=== PATIENT | female | born 1975 | race Caucasian/White ===

== ENCOUNTER 2017-03-12 02:03 | Inpatient (IN) | payer MEDICAID, OTHER ==
[~2017-03-12] VITALS: Ht 162.6 cm; Wt 73.0 kg
[2017-03-12] VITALS (8 sets, daily range): BP systolic 109–128; BP diastolic 61–69
[2017-03-12] MEDS ORDERED: ACETAMINOPHEN 325MG TABLET PO STA (02:54)
[2017-03-12] MEDS ORDERED: SODIUM CHLORIDE 0.9% 1,000 ML IV ONE ×2 (02:54)
[2017-03-12] MEDS ORDERED: KETOROLAC 30MG/ML VIAL IV STA (02:54)
[2017-03-12 03:19] LABS: CLARITY URINE CLOUDY (CLEAR); COLOR URINE YELLOW (YELLOW); GLUCOSE URINE NEGATIVE (NEGATIVE); KETONES URINE NEGATIVE (NEGATIVE); LEUKOCYTE ESTERASE URINE 3+ (NEGATIVE); NITRITE URINE POSITIVE (NEGATIVE); OCCULT BLOOD URINE 1+ (NEGATIVE); PH URINE 5.5 (4.5-8.0); PROTEIN URINE 1+ (NEGATIVE); PROTHROMBIN TIME 10.7 sec (9.4-11.6); SPECIFIC GRAVITY URINE 1.016 (1.005-1.030); UROBILINOGEN URINE 0.2 E.U./dL (0.2-1.0)
[2017-03-12 03:21] LABS: BASOPHILS % 0.5 % (0.0-2.0); EOSINOPHILS % 0.1 % (0.0-5.0); LYMPHOCYTES % 10.1 % (20.0-50.0); MEAN CORPUSCULAR HEMOGLOBIN 15.9 pg (28.0-32.0); MEAN CORPUSCULAR VOLUME 55.1 fL (81.0-99.0); MEAN PLATELET VOLUME 8.8 fl (7.4-10.4); MONOCYTES % 9.4 % (2.0-8.0); NEUTROPHILS % 79.9 % (40.0-76.0); PLATELET 301 x1000/uL (130-400); RED BLOOD CELL COUNT 3.62 mill/uL (4.2-5.4); RED CELL DISTRIBUTION WIDTH 21.3 % (11.6-14.6)
[2017-03-12 03:29] LABS: HEMATOCRIT. 19.9 % (36.0-48.0); HEMOGLOBIN. 5.8 g/dL (12.0-16.0)
[2017-03-12 03:30] LABS: PLATELET ESTIMATE NORMAL
[2017-03-12] MEDS ORDERED: CEFTRIAXONE 1 G PREMIX 50 ML IV ONE ×2 (03:30→08:15)
[2017-03-12 03:33] LABS: CARBON DIOXIDE 25 mEq/L (21-32); CHLORIDE 105 mEq/L (98-107)
[2017-03-12] MEDS ORDERED: ACETAMINOPHEN 325MG TABLET PO PRN ×2 (08:15→16:15)
[2017-03-12] MEDS ORDERED: MAGNESIUM/ALUMINUM HYDROXIDE/SIMETHICONE 30ML UDC PO PRN (08:15)
[2017-03-12] MEDS ORDERED: HYDROCODONE/ACETAMINOPHEN 5/325MG TABLET PO PRN (08:15)
[2017-03-12] MEDS ORDERED: DOCUSATE SODIUM 100MG CAPSULE PO PRN (08:15)
[2017-03-12] MEDS ORDERED: CLONIDINE 0.1MG TABLET PO PRN (08:15)
[2017-03-12] MEDS ORDERED: DIPHENHYDRAMINE 50MG/ML VIAL IV PRN (08:15)
[2017-03-12] MEDS ORDERED: GUAIFENESIN 200MG/10ML SUGAR FREE UDC PO PRN (08:15)
[2017-03-12] MEDS ORDERED: IPRATROPIUM/ALBUTEROL 0.5-3(2.5)MG/3ML NEB INH PRN (08:15)
[2017-03-12] MEDS ORDERED: NA PHOS,M-B/NA PHOS,DI-BA ENEMA 118ML PR PRN (08:15)
[2017-03-12] MEDS ORDERED: ONDANSETRON HCL 4MG/2ML VIAL IV PRN (08:15)
[2017-03-12 08:34] LABS: TOTAL IRON BINDING CAPACITY 391 ug/dL (250-450)
[2017-03-12 11:02] LABS: HEMATOCRIT 21.8 % (36.0-48.0)
[2017-03-12 11:05] LABS: HEMOGLOBIN 6.7 g/dL (12.0-16.0)
[2017-03-12] MEDS ORDERED: NON FORMULARY PATIENT HOME MED EA XX SCH (16:15)
[2017-03-12] MEDS ORDERED: SODIUM CHLORIDE 0.9% 1,000 ML IV SCH (16:15)
[2017-03-12] MEDS ORDERED: IBUPROFEN 800MG TABLET PO NR (16:57)
[2017-03-12] MEDS ORDERED: INFLUENZA VIRUS VACCINE 0.5ML SYR IM ONE (17:00)
[2017-03-12] MEDS ORDERED: IRON SUCROSE COMPLEX 100 MG/5 ML ML IV NR (17:15)
[2017-03-12] MEDS ORDERED: IBUPROFEN 400MG TABLET PO NR (17:30)
[2017-03-12 21:09] LABS: HEMATOCRIT 25.4 % (36.0-48.0); HEMOGLOBIN 7.9 g/dL (12.0-16.0)
[2017-03-12 21:15] LABS: PROTHROMBIN TIME 10.7 sec (9.4-11.6)
[2017-03-12] MEDS: SODIUM CHLORIDE 0.9% INJ 3ML FLUSH IVF SCH (22:16)
[2017-03-12] MEDS ORDERED: LEVOFLOXACIN 750MG PREMIX 150 ML IV SCH (23:30)
[2017-03-13] VITALS: BP 110/66
[2017-03-13 00:10] LABS: CLARITY URINE CLOUDY (CLEAR); COLOR URINE YELLOW (YELLOW); GLUCOSE URINE NEGATIVE (NEGATIVE); KETONES URINE NEGATIVE (NEGATIVE); LEUKOCYTE ESTERASE URINE 3+ (NEGATIVE); NITRITE URINE NEGATIVE (NEGATIVE); OCCULT BLOOD URINE 3+ (NEGATIVE); PROTEIN URINE TRACE (NEGATIVE); SPECIFIC GRAVITY URINE 1.015 (1.005-1.030)
[2017-03-13 00:33] LABS: *AMPHETAMINES SCREEN URINE NEGATIVE (NEGATIVE); *BARBITURATES SCREEN URINE NEGATIVE (NEGATIVE); *BENZODIAZEPINES SCREEN URINE NEGATIVE (NEGATIVE); *COCAINE SCREEN URINE NEGATIVE (NEGATIVE); CANNABINOID URINE SCREEN NEGATIVE (NEGATIVE); METHADONE URINE SCREEN NEGATIVE (NEGATIVE); OPIATES URINE SCREEN NEGATIVE (NEGATIVE); PHENCYCLIDINE URINE SCREEN NEGATIVE (NEGATIVE)
[2017-03-13 04:00] VITALS: BP 122/75
[2017-03-13] MEDS: SODIUM CHLORIDE 0.9% INJ 3ML FLUSH IVF SCH (05:52)
[2017-03-13 07:54] LABS: HEMOGLOBIN. 7.5 g/dL (12.0-16.0); MEAN CORPUSCULAR HEMOGLOBIN 19.8 pg (28.0-32.0); MEAN CORPUSCULAR VOLUME 62.8 fL (81.0-99.0); RED BLOOD CELL COUNT 3.82 mill/uL (4.2-5.4)
[2017-03-13 08:00] VITALS: BP 123/67
[2017-03-13 08:03] LABS: CARBON DIOXIDE 23 mEq/L (21-32); CHLORIDE 109 mEq/L (98-107); HDL CHOLESTEROL 24 mg/dL (40-59); LDL CHOLESTEROL 90 mg/dL (5-100)
[2017-03-13 08:43] LABS: FOLIC ACID (FOLATE) SERUM 15.6 ng/mL (>5.38)
[2017-03-13] MEDS ORDERED: CEFTRIAXONE 1 G PREMIX 50 ML IV SCH (09:00)
[2017-03-13] MEDS ORDERED: LEVO500T2 PO (09:06)
[2017-03-13] MEDS ORDERED: FERR325T6 PO (09:06)
[2017-03-13 09:48] VITALS: BP 123/67
[2017-03-13 10:21] LABS: PLATELET 226 x1000/uL (130-400)
[2017-03-13 10:27] LABS: PLATELET ESTIMATE NORMAL
== END 2017-03-13 10:35 | disposition home or self-care (01) | DRG 872 ==
LOC: ER 02:03 → 6EST 04:06 → ENRESERV 11:41
PROVIDERS: ADMIT Family Medicine; ATTEND Family Medicine
PROC: 30233N1 Transfusion of Nonautologous Red Blood Cells into Peripheral Vein, Percutaneous Approach (ICD-10-PCS; principal; 2017-03-12)
DX: A41.9 Sepsis, unspecified organism (principal); D25.9 Leiomyoma of uterus, unspecified; N39.0 Urinary tract infection, site not specified; D50.0 Iron deficiency anemia secondary to blood loss (chronic); E86.0 Dehydration; Z98.891 History of uterine scar from previous surgery
CPT/HCPCS: 36415; 71010; 74176; 76830; 76856; 80053; 80061; 80305; 81001; 81003; 81025; 82270; 82607; 82728; 82746; 83540; 83550; 83605; 85014; 85018; 85025; 85049; 85384; 85610; 86850; 86900; 86920; 87040; 87077; 87086; 87186; 87804; 90686; 93005; 96361; 96365; 96366; 96375; 99291; J0696; J1200; J1885; J1956; J7030; J7040; J7050; P9016